=== PATIENT | female | born 1955 | race Caucasian/White ===

== ENCOUNTER 2023-12-27 10:18 | Outpatient (OUT) | payer OTHER, SELFPAY ==
--- NOTE | 2023-12-27 10:28 | MM_ITS ---
Patient Name: SONIA TERESA MR#: [id number] : 1955 Exam Date: 12/27/2023 Ordering Doctor: Shaikh Luis Martinez . RADIOLOGY REPORT PROCEDURE: MM TOMOSYNTHESIS SCREENING BI COMPARISON: [facility] SCREEN HUMAIRA W CAD, 06/15/2018. MG [facility]M SCREEN HUMAIRA W CAD, 11/27/2019. INDICATIONS: screening Calculator Name NCI Breast Cancer Risk Assessment Tool 5 Year Breast Cancer Risk 1.40% Lifetime Breast Cancer Risk 4.10% Personal Breast Cancer No Personal Ovarian Cancer No Treatments None Family Cancers None LOCATION: [facility] BREAST COMPOSITION: Scattered areas fibroglandular density. FINDINGS: DIAGNOSTIC CATEGORY 2--BENIGN FINDING. NO CHANGE FROM COMPARISON. Scattered benign-appearing nodules are present. Scattered benign-appearing calcifications are present. Scattered benign-appearing lymph nodes are present. RIGHT BREAST: No significant suspicious finding. LEFT BREAST: No significant suspicious finding. RECOMMENDATIONS: ROUTINE MAMMOGRAM AND CLINICAL EVALUATION IN 12 MONTHS. PLEASE NOTE: A NORMAL MAMMOGRAM DOES NOT EXCLUDE THE POSSIBILITY OF BREAST CANCER. A CLINICALLY SUSPICIOUS PALPABLE LUMP SHOULD BE BIOPSIED. Dictated by: Cedrick Fairchild MD on 12/27/2023 at 14:31 Approved by: Cedrick Fairchild MD on 12/27/2023 at 14:33
--- NOTE | 2023-12-27 10:47 | CT_ITS ---
[address] [address] Patient Name: SONIA TERESA MRN: [id number] date: 1955 Sex: F Assigned Patient Location: [facility] Current Patient Location: [facility] Accession/Order Number: [id number] Exam Date: 12/27/2023 10:42 Report Date: 12/27/2023 13:35 At the request of: SHAIKH ESTEFANY Procedure: CT lung screening low-dose EXAMINATION: CT lung screening low-dose HISTORY: screening for malignant neoplasm of lung smoker Z12.2 COMPARISON: 07/20/2014 chest x-ray TECHNIQUE: Axial, Coronal, and Sagittal images were created without the administration of IV contrast material. Dose reduction techniques were achieved by using automated exposure control and/or adjustment of mA and/or kV according to patient size and/or use of iterative reconstruction technique. FINDINGS: LUNGS: Calcified left upper lobe nodule likely granuloma. No significant pulmonary nodule or mass is observed. Mild lower lobe peribronchial thickening PLEURA: No mass, effusion, or pneumothorax. VASCULATURE: No abnormality. GEREMIAS: No mass or pathologic adenopathy. MEDIASTINUM: No mass or pathologic adenopathy. CARDIAC: No enlargement, pericardial thickening, or significant calcification. CORONARY ARTERIES: Coronary calcifications are mild. AORTA: No aortic aneurysm CHEST WALL: No mass or axillary adenopathy BONES: No bone lesion or fracture. LIMITED ABDOMEN: No suspicious findings. Limited images of the upper abdomen. OTHER: Negative. CT/CT lung screening low-dose IMPRESSION: LUNG SCREENING: Lung-RADS Category 2- Benign Appearance or Behavior. Nodules with a very low likelihood of becoming a clinically active cancer due to size or lack of growth. 2. Continue annual screening with LDCT in 12 months. Electronically authenticated by: ELVA GERONIMO Date: 12/27/2023 13:35
== END 2023-12-27 10:19 | disposition home or self-care (01) ==
LOC: MAMMO 10:19
PROVIDERS: PCP Internal Medicine; Visit Provider Internal Medicine
DX: Z12.31 Encounter for screening mammogram for malignant neoplasm of breast (principal); J44.9 Chronic obstructive pulmonary disease, unspecified; F17.210 Nicotine dependence, cigarettes, uncomplicated; Z12.2 Encounter for screening for malignant neoplasm of respiratory organs
CPT/HCPCS: 71271; 77063; 77067